=== PATIENT | female | born 1990 ===

== ENCOUNTER 2022-01-05 15:43 | Emergency (ER) | payer MEDICAID ==
[~2022-01-05] VITALS: Ht 152.4 cm; Wt 87.6 kg
[2022-01-05 15:54] VITALS: BP 141/88
--- NOTE | 2022-01-05 15:59 | NUR ---
PT AMB TO BED 4.
--- NOTE | 2022-01-05 16:08 | NUR ---
31 Y/O FEMALE BIB SELF C/O L SIDE LOW BACK PAIN RADIATES TO THE L SIDE ABDOMEN X5 DAYS. PAIN IS SHARP AND EXACERABTED WITH TOUCH. PT STATES SHE HAD SUBJECTIVE FEVER YESTERDAY. PT DENIES CHEST PAIN, SOB.
--- NOTE | 2022-01-05 16:17 | NUR ---
AT PT BEDSIDE
[2022-01-05] MEDS ORDERED: KETOROLAC 30 MG/ML VIAL IM ONE (16:20)
[2022-01-05] MEDS ORDERED: ONDANSETRON 4 MG ODT PO ONE ×2 (16:20→20:55)
[2022-01-05 16:56] LABS: BASOPHILS % (AUTO) 0.2 % (0.0-2.0); EOSINOPHILS # (AUTO) 0.3 K/uL (0-0.4); HEMATOCRIT 35.5 % (36-48); HEMOGLOBIN 11.5 g/dL (12.0-16.0); LYMPHOCYTES # (AUTO) 1.4 K/uL (2.5-16.5); LYMPHOCYTES % (AUTO) 16.6 % (20.5-51.1); MEAN CORPUSCULAR HEMOGLOBIN 27 pg (27-31); MEAN CORPUSCULAR HGB CONC 33 g/dL (33-37); MEAN CORPUSCULAR VOLUME 83.2 fL (80-94); MONOCYTES # (AUTO) 0.7 K/uL (0.8-1.0); MONOCYTES % (AUTO) 8.1 % (1.7-9.3); NEUTROPHILS # (AUTO) 6.1 K/uL (1.8-7.7); NEUTROPHILS % (AUTO) 72.1 % (42.2-75.2); PLATELET COUNT (AUTO) 300 K/uL (140-450); RED BLOOD CELL COUNT(AUTO) 4.27 MIL/uL (4.20-5.40); RED CELL DISTRIBUTION WIDTH 16.7 % (11.6-13.7); WHITE BLOOD COUNT (AUTO) 8.5 K/uL (4.8-10.8)
[2022-01-05 17:41] LABS: ALBUMIN 3.3 g/dL (3.4-5.0); CARBON DIOXIDE 28.3 mmol/L (21-32); TOTAL BILIRUBIN 0.2 mg/dL (0.0-1.0)
[2022-01-05 17:47] LABS: ANION GAP 10.7 (8-16)
[2022-01-05 18:51] LABS: APPEARANCE,URINE CLEAR (CLEAR); BILIRUBIN,URINE 2+ (NEGATIVE); BLOOD, URINE 3+ (NEGATIVE); LEUKOCYTE ESTERASE ,URINE NEGATIVE (NEGATIVE); NITRITE, URINE POSITIVE (NEGATIVE); PH,URINE 6.5 (5.0-9.0); UGLUCOSE NEGATIVE (NEGATIVE)
[2022-01-05 18:56] LABS: COLOR,URINE BROWN (YELLOW)
[2022-01-05 19:05] LABS: RBC,URINE TOO NUMEROUS TO COUN /HPF (0-5); WBC,URINE NONE SEEN /HPF (0-5)
--- NOTE | 2022-01-05 19:19 | NUR ---
Pt report given to [facility]. Transfer of care at this time.
[2022-01-05] MEDS ORDERED: cefTRIAXone 1,000 MG in LIDOCAINE MPF 1% 2.1 ML IM ONE (19:30)
--- NOTE | 2022-01-05 19:39 | NUR ---
PT RETURNED FROM CT
[2022-01-05] MEDS ORDERED: cefTRIAXone 1,000 MG VIAL ONE (19:51)
[2022-01-05] MEDS ORDERED: LIDOCAINE MPF 1% 5 ML ONE (19:51)
[2022-01-05] MEDS ORDERED: HYDROcodone/APAP 10/325 MG 1 TAB TAB PO ONE (20:00)
[2022-01-05] MEDS ORDERED: IBUP-2218 PO ×2 (20:44→22:50)
[2022-01-05] MEDS ORDERED: CIPR500T4 PO ×2 (20:44→22:50)
[2022-01-05] MEDS ORDERED: HYDR-5191 PO ×2 (20:44→22:50)
[2022-01-05 21:19] VITALS: BP 128/81
--- NOTE | 2022-01-05 21:21 | NUR ---
Patient discharged with v/s stable. Written and verbal after care instructions given and explained. Patient alert, oriented and verbalized understanding of instructions. Ambulatory with steady gait. All questions addressed prior to discharge. ID band removed. Patient advised to follow up with PMD. Rx of CIPRO, NORCO ([id number]), AND IBUPROFEN given. Patient educated on indication of medication including possible reaction and side effects. Opportunity to ask questions provided and answered. VSS, A/OX4, AMBULATORY, UNLABORED BREATHING, AND CALM DEMEANOR.
[2022-01-05] MEDS ORDERED: ONDA-188 SL (22:53)
== END 2022-01-05 21:21 | disposition home or self-care (01) ==
LOC: MED 15:43
DX: N39.0 Urinary tract infection, site not specified (principal); N20.0 Calculus of kidney; Z90.49 Acquired absence of other specified parts of digestive tract; Z88.2 Allergy status to sulfonamides; Z88.1 Allergy status to other antibiotic agents
CPT/HCPCS: 36415; 74176; 80053; 81001; 81025; 83690; 85025; 96372; 99285; J0696; J1885; J2001; Q0162

== ENCOUNTER 2022-01-07 14:10 | Emergency (ER) | payer MEDICAID ==
[~2022-01-07] VITALS: Ht 152.4 cm; Wt 89.4 kg
[~2022-01-07 14:10] MED LIST: HYDR-5191 PO; IBUP-2218 PO; ONDA-188 SL
[2022-01-07 14:34] VITALS: BP 134/75
[2022-01-07] MEDS ORDERED: KETOROLAC 30 MG/ML VIAL IVP ONE (15:25)
[2022-01-07] MEDS ORDERED: NACL 0.9% 1,000 ML IV SCH (15:25)
[2022-01-07] MEDS ORDERED: ONDANSETRON 4 MG/2 ML VIAL IVP ONE (15:25)
[2022-01-07 15:55] LABS: BASOPHILS % (AUTO) 0.4 % (0.0-2.0); EOSINOPHILS # (AUTO) 0.4 K/uL (0-0.4); EOSINOPHILS % (AUTO) 5.1 % (0.0-4.0); HEMATOCRIT 35.8 % (36-48); HEMOGLOBIN 11.6 g/dL (12.0-16.0); LYMPHOCYTES # (AUTO) 1.5 K/uL (2.5-16.5); LYMPHOCYTES % (AUTO) 20.2 % (20.5-51.1); MEAN CORPUSCULAR HEMOGLOBIN 27 pg (27-31); MEAN CORPUSCULAR HGB CONC 32 g/dL (33-37); MEAN CORPUSCULAR VOLUME 83.6 fL (80-94); MONOCYTES # (AUTO) 0.6 K/uL (0.8-1.0); MONOCYTES % (AUTO) 8.8 % (1.7-9.3); NEUTROPHILS # (AUTO) 4.8 K/uL (1.8-7.7); NEUTROPHILS % (AUTO) 65.5 % (42.2-75.2); PLATELET COUNT (AUTO) 308 K/uL (140-450); RED BLOOD CELL COUNT(AUTO) 4.29 MIL/uL (4.20-5.40); RED CELL DISTRIBUTION WIDTH 16.3 % (11.6-13.7); WHITE BLOOD COUNT (AUTO) 7.3 K/uL (4.8-10.8)
[2022-01-07 16:23] LABS: ALBUMIN 3.3 g/dL (3.4-5.0); ANION GAP 9.6 (8-16); CARBON DIOXIDE 30.7 mmol/L (21-32); POTASSIUM 4.3 mmol/L (3.5-5.1); TOTAL BILIRUBIN 0.2 mg/dL (0.0-1.0)
[2022-01-07 16:35] LABS: CREATININE 1.1 mg/dL (0.6-1.3)
[2022-01-07] MEDS ORDERED: KETOROLAC 30 MG/ML VIAL ONE (16:40)
[2022-01-07] MEDS ORDERED: ONDANSETRON 4 MG/2 ML VIAL ONE (16:41)
[2022-01-07] MEDS ORDERED: MORPHINE SULFATE 4 MG/ML SYR IVP ONE (17:05)
[2022-01-07] MEDS ORDERED: TAMS0.4C96 PO (17:43)
[2022-01-07 18:10] VITALS: BP 128/70
== END 2022-01-07 18:10 | disposition home or self-care (01) ==
LOC: MED 14:10
DX: N39.0 Urinary tract infection, site not specified (principal); F17.210 Nicotine dependence, cigarettes, uncomplicated; Z87.442 Personal history of urinary calculi; Z88.2 Allergy status to sulfonamides; Z88.1 Allergy status to other antibiotic agents; Z90.49 Acquired absence of other specified parts of digestive tract; Z79.899 Other long term (current) drug therapy
CPT/HCPCS: 36415; 76770; 80053; 81002; 81025; 83690; 85025; 96361; 96374; 96375; 99284; J1885; J2270; J2405; J7030; Q0092

== ENCOUNTER 2022-04-30 15:59 | Emergency (ER) | payer MEDICAID ==
[~2022-04-30] VITALS: Ht 152.4 cm; Wt 90.7 kg
[~2022-04-30 15:59] MED LIST changes: +TAMS0.4C96 PO
[2022-04-30 16:05] VITALS: BP 125/69
[2022-04-30] MEDS ORDERED: CEPH-588 PO (17:11)
[2022-04-30] MEDS ORDERED: DIPH25TA53 PO (17:11)
--- NOTE | 2022-04-30 17:16 | NUR ---
32 y/o female bib self from home, pt presents to ed with c/o left leg pain in relation to beesting from 4 days ago. skin is pink/warm/dry. a&o x4 with even and steady gait. lungs clear bl, heart rate even and regular. pt denies any fever, cp, sob, or cough at this time. pmh: depression allergy: sulda, trimethoprim
--- NOTE | 2022-04-30 17:36 | NUR ---
PT LEFT W/O PAPERWORK
--- NOTE | 2022-04-30 17:38 | NUR ---
The patient's care was reviewed and supervised by ED Agency Nurse 9, RN, RN.
== END 2022-04-30 17:38 | disposition home or self-care (01) ==
LOC: MED 15:59
DX: L03.116 Cellulitis of left lower limb (principal); Z88.2 Allergy status to sulfonamides; Z88.8 Allergy status to other drugs, medicaments and biological substances
CPT/HCPCS: 99283

== ENCOUNTER 2022-09-01 20:43 | Emergency (ER) | payer MEDICAID ==
[~2022-09-01] VITALS: Ht 152.4 cm; Wt 93.4 kg
[~2022-09-01 20:43] MED LIST changes: +CEPH-588 PO; +DIPH25TA53 PO
[2022-09-01 21:13] VITALS: BP 132/68
--- NOTE | 2022-09-01 21:20 | NUR ---
TO LOBBY FOLLOWING TRIAGE AND AFTER OBTAINING UA
[2022-09-02 00:38] LABS: APPEARANCE,URINE CLOUDY (CLEAR); BILIRUBIN,URINE NEGATIVE (NEGATIVE); BLOOD, URINE NEGATIVE (NEGATIVE); COLOR,URINE YELLOW (YELLOW); LEUKOCYTE ESTERASE ,URINE SMALL (NEGATIVE); NITRITE, URINE POSITIVE (NEGATIVE); PH,URINE 6.5 (5.0-9.0); UGLUCOSE NEGATIVE (NEGATIVE)
[2022-09-02 00:46] LABS: RBC,URINE 0-5 /HPF (0-5)
[2022-09-02 00:47] LABS: BARBITURATE, URINE NEGATIVE ng/ml (NEG <=200); BENZODIAZEPINE, URINE NEGATIVE ng/mL (NEG <=200); CANNABINOID, URINE NEGATIVE ng/mL (NEG <=50); COCAINE, URINE NEGATIVE ng/mL (NEG <=300); OPIATE, URINE NEGATIVE ng/mL (NEG <=2000); PHENCYCLIDINE SCREEN,URINE NEGATIVE ng/mL (NEG <=25)
[2022-09-02] MEDS ORDERED: PREN-371 PO (00:53)
[2022-09-02] MEDS ORDERED: NITR100C7 PO (00:53)
[2022-09-02 01:09] VITALS: BP 132/72
--- NOTE | 2022-09-02 01:13 | NUR ---
Patient discharged with v/s stable. Written and verbal after care instructions given and explained. Patient verbalized understanding. Ambulatory with steady gait. All questions addressed prior to discharge. Advised to follow up with PMD.
== END 2022-09-02 01:09 | disposition home or self-care (01) ==
LOC: MED 20:43
DX: O20.0 Threatened abortion (principal); O23.41 Unspecified infection of urinary tract in pregnancy, first trimester; F15.10 Other stimulant abuse, uncomplicated; Z88.2 Allergy status to sulfonamides; Z88.1 Allergy status to other antibiotic agents; Z79.899 Other long term (current) drug therapy
CPT/HCPCS: 80305; 81001; 81025; 87086; 99283